=== PATIENT | male | born 1960 | race American Indian/Alaskan Native ===

== ENCOUNTER 2017-09-12 11:10 | Emergency (ER) | payer MEDICAID ==
[~2017-09-12] VITALS: Ht 653.8 cm; Wt 157.4 kg
[~2017-09-12 11:10] MED LIST: ACET250T3 PO; ALBU8.5H4 IH; ARIP10TA9 PO; ASPI81TA35 PO; ATOR10TA70 PO; BECL8.7A3 IH; CARV6.253 PO; CLIN-5 PO; DICY10CA88 PO; DOCU250C4 PO; FURO40TA4 PO; GLIM2TAB2 PO; INSU100I31 SQ; LISI-644 PO; ONDA4TAB9 PO; OSC500T PO; OXYC30TA88 PO; PANT40TA4 PO; PARO40TA4 PO; TEST200V16 IM
[2017-09-12] MEDS ORDERED: normal saline 1000ML IV soln IVB ONE (12:05)
[2017-09-12 12:08] LABS: BASOPHILS % (AUTO) 0.3 % (0-1); EOSINOPHILS # (AUTO) 0.2 X10'3 (0-0.9); EOSINOPHILS % (AUTO) 2.4 % (0-6); HEMATOCRIT 46.3 % (42.0-52.0); HEMOGLOBIN 15.7 g/dl (14.0-17.9); LYMPHOCYTES # (AUTO) 2.9 X10'3 (1.1-4.8); LYMPHOCYTES % (AUTO) 28.9 % (21-51); MEAN CORPUSCULAR HEMOGLOBIN 31.1 PG (27.0-31.0); MEAN CORPUSCULAR HGB CONC 33.9 % (33.0-36.5); MEAN CORPUSCULAR VOLUME 91.9 FL (78-98); MEAN PLATELET VOLUME 10.1 FL (7.4-10.4); MONOCYTES # (AUTO) 0.5 X10'3 (0-0.9); MONOCYTES % (AUTO) 4.7 % (2-12); NEUTROPHILS # (AUTO) 6.5 X10'3 (1.8-7.7); NEUTROPHILS % (AUTO) 63.7 % (42-75); PLATELET COUNT 195 X10'3 (140-440); RED BLOOD COUNT 5.03 X10'6 (4.70-6.10); WHITE BLOOD COUNT 10.2 X10'3 (4.5-11.0)
[2017-09-12 12:25] LABS: ALANINE AMINOTRANSFERASE 67 U/L (12-78); ALBUMIN 3.2 G/DL (3.4-5.0); ALBUMIN/GLOBULIN RATIO 0.9 (1.1-1.5); ALKALINE PHOSPHATASE 107 IU/L (46-116); ANION GAP 7 (8-16); ASPARTATE AMINO TRANSFERASE 46 U/L (10-37); BILIRUBIN,TOTAL 0.5 MG/DL (0.1-1.0); BLOOD UREA NITROGEN 12 MG/DL (7-18); CHLORIDE 107 MMOL/L (99-107); GLUCOSE 252 MG/DL (70-104); POTASSIUM 3.9 MMOL/L (3.5-5.1); SODIUM 141 MMOL/L (135-145); TOTAL CARBON DIOXIDE 27.1 MMOL/L (24-32); TOTAL PROTEIN 6.7 G/DL (6.4-8.2); eGFR 62 ML/MIN
[2017-09-12 12:36] LABS: CLARITY,URINE CLEAR (Clear); COLOR,URINE AMBER (Yellow); GLUCOSE, URINE NEGATIVE (Neg); KETONES,URINE TRACE mg/dl (Neg); LEUKOCYTE ESTERASE ,URINE NEGATIVE (Neg); NITRITES, URINE NEGATIVE (Neg); OCCULT BLOOD,URINE NEGATIVE (Neg); PH,URINE 6.5 (4.8-8.0); PROTEIN,URINE TRACE mg/dl (Neg)
[2017-09-12 12:41] LABS: UA COLLECTION TYPE URINAL
[2017-09-12] MEDS ORDERED: iohexol 300mg/ml 100ml inj. ONE (12:41)
[2017-09-12 12:45] LABS: BACTERIA,URINE FEW /HPF (Neg); COARSE GRANULAR CAST 0-3 /LPF (NEGATIVE); MUCUS STRANDS MANY /LPF (Neg); RBC,URINE 0-2 /HPF (0-2); SQUAMOUS EPITHELIAL CELL,UR FEW /LPF (FEW); WBC,URINE 0-4 /HPF (0-4)
[2017-09-12 12:50] LABS: URINE AMPHETAMINE SCREEN NEGATIVE (Neg); URINE BARBITUATE SCREEN NEGATIVE (Neg); URINE BENZODIAZEPINES SCREEN NEGATIVE (Neg); URINE CANNABINOID SCREEN NEGATIVE (Neg); URINE COCAINE SCREEN NEGATIVE (Neg); URINE METHADONE SCREEN NEGATIVE (Neg); URINE OPIATE SCREEN POSITIVE (Neg)
[2017-09-12 13:18] LABS: URINE PHENCYCLIDINE SCREEN NEGATIVE (Neg)
[2017-09-12 16:02] VITALS: BP 105/72
== END 2017-09-12 16:07 | disposition home or self-care (01) ==
LOC: ER 11:11
DX: M54.9 Dorsalgia, unspecified (principal); R10.31 Right lower quadrant pain; R19.7 Diarrhea, unspecified; I10 Essential (primary) hypertension; J44.9 Chronic obstructive pulmonary disease, unspecified; K21.9 Gastro-esophageal reflux disease without esophagitis; E11.9 Type 2 diabetes mellitus without complications; F12.10 Cannabis abuse, uncomplicated; G89.29 Other chronic pain; Z90.49 Acquired absence of other specified parts of digestive tract; Z98.890 Other specified postprocedural states; Z88.5 Allergy status to narcotic agent; Z88.0 Allergy status to penicillin; Z88.8 Allergy status to other drugs, medicaments and biological substances; Z79.82 Long term (current) use of aspirin; Z79.4 Long term (current) use of insulin; Z79.899 Other long term (current) drug therapy
CPT/HCPCS: 36415; 74176; 80053; 80305; 81001; 85025; 99285; J7030; Q9967

== ENCOUNTER 2017-11-16 14:06 | Emergency (ER) | payer MEDICAID ==
[~2017-11-16] VITALS: Ht 188 cm; Wt 157.0 kg
[~2017-11-16 14:06] MED LIST changes: -DICY10CA88 PO; -ONDA4TAB9 PO
[2017-11-16 16:42] LABS: ALANINE AMINOTRANSFERASE 42 U/L (12-78); ALBUMIN 3.5 G/DL (3.4-5.0); ALBUMIN/GLOBULIN RATIO 0.9 (1.1-1.5); ALKALINE PHOSPHATASE 134 IU/L (46-116); ANION GAP 7 (8-16); ASPARTATE AMINO TRANSFERASE 17 U/L (10-37); BILIRUBIN,TOTAL 0.6 MG/DL (0.1-1.0); BLOOD UREA NITROGEN 16 MG/DL (7-18); BUN/CREATININE RATIO 12.6 (5.4-32.0); CALCIUM 9.7 MG/DL (8.5-10.1); CHLORIDE 103 MMOL/L (99-107); CREATININE 1.27 MG/DL (0.60-1.10); GLUCOSE 151 MG/DL (70-104); POTASSIUM 3.7 MMOL/L (3.5-5.1); SODIUM 138 MMOL/L (135-145); TOTAL CARBON DIOXIDE 27.7 MMOL/L (24-32); TOTAL PROTEIN 7.6 G/DL (6.4-8.2); eGFR 58 ML/MIN
[2017-11-16 16:53] LABS: BASOPHILS # (AUTO) 0.1 X10'3 (0-0.2); BASOPHILS % (AUTO) 0.6 % (0-1); EOSINOPHILS # (AUTO) 0.3 X10'3 (0-0.9); HEMOGLOBIN 15.9 g/dl (14.0-17.9); LYMPHOCYTES # (AUTO) 3.1 X10'3 (1.1-4.8); LYMPHOCYTES % (AUTO) 25.3 % (21-51); MEAN CORPUSCULAR HEMOGLOBIN 31.3 PG (27.0-31.0); MEAN CORPUSCULAR HGB CONC 34.5 % (33.0-36.5); MEAN CORPUSCULAR VOLUME 90.7 FL (78-98); MEAN PLATELET VOLUME 10.3 FL (7.4-10.4); MONOCYTES # (AUTO) 0.6 X10'3 (0-0.9); NEUTROPHILS # (AUTO) 8.3 X10'3 (1.8-7.7); NEUTROPHILS % (AUTO) 67.1 % (42-75); PLATELET COUNT 203 X10'3 (140-440); RED BLOOD COUNT 5.07 X10'6 (4.70-6.10); RED CELL DISTRIBUTION WIDTH 13.3 % (11.5-14.5); WHITE BLOOD COUNT 12.4 X10'3 (4.5-11.0)
[2017-11-16] MEDS ORDERED: CEPH500C2 PO (17:56)
[2017-11-16] MEDS ORDERED: BACDS PO ×2 (17:56→18:01)
[2017-11-16] MEDS ORDERED: sulfamethoxazole/trimethoprim DS (800/160mg) tablet PO ONE (18:00)
[2017-11-16] MEDS ORDERED: clindamycin 150mg capsule PO ONE (18:00)
[2017-11-16] MEDS ORDERED: CLIN300C17 PO (18:01)
[2017-11-16 18:09] VITALS: BP 148/66
== END 2017-11-16 18:12 | disposition home or self-care (01) ==
LOC: ER 14:06
DX: L03.116 Cellulitis of left lower limb (principal); L03.115 Cellulitis of right lower limb; E11.65 Type 2 diabetes mellitus with hyperglycemia; F17.200 Nicotine dependence, unspecified, uncomplicated; I10 Essential (primary) hypertension; J44.9 Chronic obstructive pulmonary disease, unspecified; K21.9 Gastro-esophageal reflux disease without esophagitis; G89.29 Other chronic pain; F12.90 Cannabis use, unspecified, uncomplicated; Z90.49 Acquired absence of other specified parts of digestive tract; Z90.89 Acquired absence of other organs; Z98.890 Other specified postprocedural states; Z88.0 Allergy status to penicillin; Z88.5 Allergy status to narcotic agent; Z88.8 Allergy status to other drugs, medicaments and biological substances; Z79.82 Long term (current) use of aspirin; Z79.4 Long term (current) use of insulin; Z79.899 Other long term (current) drug therapy
CPT/HCPCS: 36415; 80053; 85025; 93005; 99285

== ENCOUNTER 2017-11-29 12:00 | Inpatient (IN) | payer MEDICAID ==
[~2017-11-29] VITALS: Ht 188 cm; Wt 160.3 kg
[~2017-11-29 12:00] MED LIST changes: +CLIN300C17 PO
[2017-11-29] MEDS ORDERED: ondansetron/PF 4mg/2ml inj IV ONE (12:25)
[2017-11-29] MEDS ORDERED: morphine 4 MG/ML inj SYRINge IV ONE (12:25)
[2017-11-29 12:39] LABS: BASOPHILS % (AUTO) 0.4 % (0-1); EOSINOPHILS # (AUTO) 0.3 X10'3 (0-0.9); EOSINOPHILS % (AUTO) 2.4 % (0-6); HEMATOCRIT 43.7 % (42.0-52.0); LYMPHOCYTES # (AUTO) 3.8 X10'3 (1.1-4.8); LYMPHOCYTES % (AUTO) 35.8 % (21-51); MEAN CORPUSCULAR HEMOGLOBIN 31.3 PG (27.0-31.0); MEAN CORPUSCULAR HGB CONC 34.4 % (33.0-36.5); MEAN CORPUSCULAR VOLUME 91.2 FL (78-98); MEAN PLATELET VOLUME 9.6 FL (7.4-10.4); MONOCYTES # (AUTO) 0.5 X10'3 (0-0.9); MONOCYTES % (AUTO) 5.1 % (2-12); NEUTROPHILS % (AUTO) 56.3 % (42-75); PLATELET COUNT 193 X10'3 (140-440); RED CELL DISTRIBUTION WIDTH 13.4 % (11.5-14.5); WHITE BLOOD COUNT 10.7 X10'3 (4.5-11.0)
[2017-11-29 12:56] LABS: ALANINE AMINOTRANSFERASE 43 U/L (12-78); ALBUMIN 3.4 G/DL (3.4-5.0); ALKALINE PHOSPHATASE 121 IU/L (46-116); ANION GAP 9 (8-16); ASPARTATE AMINO TRANSFERASE 18 U/L (10-37); BILIRUBIN,TOTAL 0.4 MG/DL (0.1-1.0); BLOOD UREA NITROGEN 21 MG/DL (7-18); BUN/CREATININE RATIO 19.6 (5.4-32.0); CALCIUM 9.3 MG/DL (8.5-10.1); CHLORIDE 105 MMOL/L (99-107); CREATININE 1.07 MG/DL (0.60-1.10); GLUCOSE 261 MG/DL (70-104); MAGNESIUM 1.6 MG/DL (1.5-2.4); SODIUM 136 MMOL/L (135-145); TOTAL CARBON DIOXIDE 21.9 MMOL/L (24-32); TOTAL PROTEIN 6.9 G/DL (6.4-8.2); eGFR 71 ML/MIN
[2017-11-29] MEDS ORDERED: HYDROcodone/acetaminophen 10/325mg tab PO ONE (13:25)
[2017-11-29] MEDS ORDERED: ALOG6.252 PO (13:42)
[2017-11-29] MEDS ORDERED: LIRA0.6P SQ (13:42)
[2017-11-29] MEDS ORDERED: POTA10TA19 PO (13:42)
[2017-11-29] MEDS ORDERED: SPIR50TA5 PO (13:42)
[2017-11-29] MEDS ORDERED: MELO-100 PO (13:42)
[2017-11-29] MEDS ORDERED: MESSAGE TO PHARMACY PO ONE (14:15)
[2017-11-29] MEDS ORDERED: ondansetron/PF 4mg/2ml inj IV PRN (14:15)
[2017-11-29] MEDS ORDERED: dextrose ORAL solution 15 GM/59 ML bottle PO PRN ×2 (14:15)
[2017-11-29] MEDS ORDERED: potassium Cl 40MEQ/NS 500ml 500 ML IV PRN ×2 (14:15)
[2017-11-29] MEDS ORDERED: mag hydrox/Alum hydrox/simeth 30ml oral suspension PO PRN (14:15)
[2017-11-29] MEDS ORDERED: acetaminophen 325mg tablet PO PRN (14:15)
[2017-11-29] MEDS ORDERED: dextrose 50%-water 50ml dispensing syringe IV PRN ×2 (14:15)
[2017-11-29] MEDS ORDERED: potassium Cl 20 mEq SR tablet PO PRN ×2 (14:15)
[2017-11-29] MEDS ORDERED: glucagon, human recombinant 1mg kit SUBCUT PRN (14:15)
[2017-11-29] MEDS ORDERED: magnesium 4gm in 100ml NS 100 ML IV PRN (14:15)
[2017-11-29] MEDS ORDERED: ipratropium/albuterol 3ml nebule NEB PRN (14:15)
[2017-11-29] MEDS ORDERED: magnesium hydroxide 30ml (MOM) UD suspension PO PRN (14:15)
[2017-11-29] MEDS ORDERED: magnesium 1gm/100ml D5W IVPB 100 ML IV PRN (14:15)
[2017-11-29 14:21] LABS: CLARITY,URINE CLEAR (Clear); COLOR,URINE YELLOW (Yellow); GLUCOSE, URINE 250 mg/dl (Neg); KETONES,URINE NEGATIVE (Neg); LEUKOCYTE ESTERASE ,URINE NEGATIVE (Neg); NITRITES, URINE NEGATIVE (Neg); OCCULT BLOOD,URINE NEGATIVE (Neg); PROTEIN,URINE NEGATIVE (Neg); UROBILINOGEN,URINE 0.2 E.U/dL (0.2-1.0)
[2017-11-29 14:23] LABS: UA COLLECTION TYPE VOIDED
[2017-11-29] MEDS: carvedilol 6.25mg tablet PO SCH (16:00)
[2017-11-29 16:08] LABS: HEMOGLOBIN A1C 9.3 % (4.5-6.2)
[2017-11-29] MEDS: oxyCODONE IR 5mg (immed. release) tablet PO PRN (17:01)
[2017-11-29 17:50] VITALS: BP 138/88
[2017-11-29] MEDS: PARoxetine 20mg tablet PO SCH (20:00)
[2017-11-29] MEDS: doxycycline inj 100 MG in normal saline 100ml IV soln 100 ML IV SCH (20:00)
[2017-11-29] MEDS: furosemide 40mg tablet PO SCH (20:00)
[2017-11-29] MEDS: acetaZOLAMIDE 250mg tablet PO SCH (20:00)
[2017-11-29] MEDS: insulin glargine (Lantus) pen - multi-dose SQ SCH (20:55)
[2017-11-29] MEDS: atorvastatin 10mg tablet PO SCH (21:01)
[2017-11-29 22:00] VITALS: BP 106/64
[2017-11-29] MEDS ORDERED: oxyCODONE IR 5mg (immed. release) tablet PO ONE (23:50)
[2017-11-30 06:00] VITALS: BP 103/72
[2017-11-30 06:33] LABS: BASOPHILS # (AUTO) 0.1 X10'3 (0-0.2); BASOPHILS % (AUTO) 0.8 % (0-1); EOSINOPHILS # (AUTO) 0.3 X10'3 (0-0.9); EOSINOPHILS % (AUTO) 2.6 % (0-6); HEMATOCRIT 43.4 % (42.0-52.0); HEMOGLOBIN 14.9 g/dl (14.0-17.9); LYMPHOCYTES # (AUTO) 3.5 X10'3 (1.1-4.8); LYMPHOCYTES % (AUTO) 33.6 % (21-51); MEAN CORPUSCULAR HEMOGLOBIN 31.2 PG (27.0-31.0); MEAN CORPUSCULAR HGB CONC 34.2 % (33.0-36.5); MEAN CORPUSCULAR VOLUME 91.1 FL (78-98); MEAN PLATELET VOLUME 9.7 FL (7.4-10.4); MONOCYTES # (AUTO) 0.5 X10'3 (0-0.9); MONOCYTES % (AUTO) 4.9 % (2-12); NEUTROPHILS % (AUTO) 58.1 % (42-75); PLATELET COUNT 188 X10'3 (140-440); RED BLOOD COUNT 4.77 X10'6 (4.70-6.10); RED CELL DISTRIBUTION WIDTH 13.6 % (11.5-14.5); WHITE BLOOD COUNT 10.4 X10'3 (4.5-11.0)
[2017-11-30 06:51] LABS: ALANINE AMINOTRANSFERASE 53 U/L (12-78); ALBUMIN 3.3 G/DL (3.4-5.0); ALBUMIN/GLOBULIN RATIO 0.9 (1.1-1.5); ALKALINE PHOSPHATASE 105 IU/L (46-116); ANION GAP 8 (8-16); ASPARTATE AMINO TRANSFERASE 30 U/L (10-37); BILIRUBIN,TOTAL 0.5 MG/DL (0.1-1.0); BLOOD UREA NITROGEN 21 MG/DL (7-18); BUN/CREATININE RATIO 18.6 (5.4-32.0); CALCIUM 9.1 MG/DL (8.5-10.1); CHLORIDE 102 MMOL/L (99-107); CHOL/HDL RATIO 4.4 (0.00-4.99); CHOLESTEROL 128 MG/DL (0-200); CREATININE 1.13 MG/DL (0.60-1.10); GLUCOSE 171 MG/DL (70-104); HDL CHOLESTEROL 29 MG/DL (35-60); LDL CHOLESTEROL 69 MG/DL (50-100); MAGNESIUM 1.6 MG/DL (1.5-2.4); SODIUM 138 MMOL/L (135-145); TOTAL CARBON DIOXIDE 28.1 MMOL/L (24-32); TOTAL PROTEIN 7.1 G/DL (6.4-8.2); TRIGLYCERIDES 259 MG/DL (20-135); eGFR 67 ML/MIN
[2017-11-30] MEDS: aripiprazole 5mg tablet PO SCH (07:44)
[2017-11-30] MEDS: spironolactone 50 MG tablet PO SCH (07:44)
[2017-11-30] MEDS: docusate sod 250mg capsule PO SCH (07:44)
[2017-11-30] MEDS: carvedilol 6.25mg tablet PO SCH ×2 (07:44→15:44)
[2017-11-30] MEDS: aspirin 81mg tablet.DR PO SCH (07:44)
[2017-11-30] MEDS: pantoprazole 40mg Tablet.DR PO SCH (07:44)
[2017-11-30] MEDS: oxyCODONE IR 5mg (immed. release) tablet PO PRN ×2 (07:44→15:40)
[2017-11-30] MEDS: furosemide 40mg tablet PO SCH ×2 (07:44→21:30)
[2017-11-30] MEDS: lisinopril 20mg tablet PO SCH (07:44)
[2017-11-30] MEDS: acetaZOLAMIDE 250mg tablet PO SCH ×2 (07:44→21:30)
[2017-11-30] MEDS: enoxaparin 40mg/0.4ml syringe SQ SCH (07:45)
[2017-11-30] MEDS: doxycycline inj 100 MG in normal saline 100ml IV soln 100 ML IV SCH ×2 (07:53→21:26)
[2017-11-30] MEDS: K and/or MAG REPLACEMENT MC SCH (08:00)
[2017-11-30 10:00] VITALS: BP 116/67
[2017-11-30] MEDS: insulin Lispro (HumaLOG) vial - multi-dose SQ SCH ×2 (13:15→18:51)
[2017-11-30] MEDS: PARoxetine 20mg tablet PO SCH (15:39)
[2017-11-30] MEDS: emollient combination-Eucerin 250 ML LOTION TP SCH (15:39)
[2017-11-30 15:42] VITALS: BP 99/60
[2017-11-30 18:00] VITALS: BP 133/63
[2017-11-30] MEDS: atorvastatin 10mg tablet PO SCH (21:29)
[2017-11-30] MEDS: lactobacillus rhamnosus 10,000 MMU CELLS/CAPSULE PO SCH (21:29)
[2017-11-30] MEDS: insulin glargine (Lantus) pen - multi-dose SQ SCH (21:53)
[2017-11-30 22:00] VITALS: BP 90/40
[2017-12-01 02:07] VITALS: BP 113/66
[2017-12-01 05:35] LABS: BASOPHILS # (AUTO) 0.1 X10'3 (0-0.2); BASOPHILS % (AUTO) 1.2 % (0-1); EOSINOPHILS # (AUTO) 0.2 X10'3 (0-0.9); EOSINOPHILS % (AUTO) 2.2 % (0-6); HEMOGLOBIN 13.9 g/dl (14.0-17.9); LYMPHOCYTES # (AUTO) 2.9 X10'3 (1.1-4.8); LYMPHOCYTES % (AUTO) 28.1 % (21-51); MEAN CORPUSCULAR HEMOGLOBIN 31.2 PG (27.0-31.0); MEAN CORPUSCULAR HGB CONC 33.9 % (33.0-36.5); MEAN CORPUSCULAR VOLUME 91.8 FL (78-98); MEAN PLATELET VOLUME 9.6 FL (7.4-10.4); MONOCYTES # (AUTO) 0.6 X10'3 (0-0.9); MONOCYTES % (AUTO) 5.8 % (2-12); NEUTROPHILS # (AUTO) 6.4 X10'3 (1.8-7.7); NEUTROPHILS % (AUTO) 62.7 % (42-75); PLATELET COUNT 183 X10'3 (140-440); RED BLOOD COUNT 4.47 X10'6 (4.70-6.10); RED CELL DISTRIBUTION WIDTH 13.5 % (11.5-14.5); WHITE BLOOD COUNT 10.2 X10'3 (4.5-11.0)
[2017-12-01 05:52] LABS: ALANINE AMINOTRANSFERASE 48 U/L (12-78); ALBUMIN 3.1 G/DL (3.4-5.0); ALBUMIN/GLOBULIN RATIO 0.9 (1.1-1.5); ALKALINE PHOSPHATASE 104 IU/L (46-116); ANION GAP 6 (8-16); ASPARTATE AMINO TRANSFERASE 27 U/L (10-37); BILIRUBIN,TOTAL 0.4 MG/DL (0.1-1.0); BLOOD UREA NITROGEN 26 MG/DL (7-18); BUN/CREATININE RATIO 26.3 (5.4-32.0); CALCIUM 8.9 MG/DL (8.5-10.1); CHLORIDE 103 MMOL/L (99-107); CREATININE 0.99 MG/DL (0.60-1.10); GLUCOSE 197 MG/DL (70-104); MAGNESIUM 1.6 MG/DL (1.5-2.4); POTASSIUM 3.7 MMOL/L (3.5-5.1); SODIUM 136 MMOL/L (135-145); TOTAL CARBON DIOXIDE 26.6 MMOL/L (24-32); TOTAL PROTEIN 6.5 G/DL (6.4-8.2); eGFR 78 ML/MIN
[2017-12-01 06:00] VITALS: BP 123/72
[2017-12-01] MEDS: K and/or MAG REPLACEMENT MC SCH (07:04)
[2017-12-01] MEDS: docusate sod 250mg capsule PO SCH (07:15)
[2017-12-01] MEDS: enoxaparin 40mg/0.4ml syringe SQ SCH (07:15)
[2017-12-01] MEDS: lactobacillus rhamnosus 10,000 MMU CELLS/CAPSULE PO SCH ×2 (07:15→19:40)
[2017-12-01] MEDS: acetaZOLAMIDE 250mg tablet PO SCH (07:15)
[2017-12-01] MEDS: aripiprazole 5mg tablet PO SCH (07:15)
[2017-12-01] MEDS: pantoprazole 40mg Tablet.DR PO SCH (07:16)
[2017-12-01] MEDS: aspirin 81mg tablet.DR PO SCH (07:16)
[2017-12-01] MEDS: spironolactone 50 MG tablet PO SCH (07:16)
[2017-12-01] MEDS: furosemide 40mg tablet PO SCH ×2 (07:16→19:40)
[2017-12-01] MEDS: oxyCODONE IR 5mg (immed. release) tablet PO PRN ×3 (07:16→23:38)
[2017-12-01] MEDS: lisinopril 20mg tablet PO SCH (07:17)
[2017-12-01] MEDS: carvedilol 6.25mg tablet PO SCH (07:17)
[2017-12-01] MEDS: carVEDilol 3.125mg tablet PO SCH ×2 (08:00→15:40)
[2017-12-01] MEDS: insulin Lispro (HumaLOG) vial - multi-dose SQ SCH ×3 (08:49→19:38)
[2017-12-01] MEDS: doxycycline inj 100 MG in normal saline 100ml IV soln 100 ML IV SCH (08:51)
[2017-12-01 10:00] VITALS: BP 108/75
[2017-12-01 15:40] VITALS: BP 126/84
[2017-12-01] MEDS: PARoxetine 20mg tablet PO SCH (15:44)
[2017-12-01] MEDS: DOXYCYCLINE 100MG CAPSULE PO SCH (16:56)
[2017-12-01 18:00] VITALS: BP 121/64
[2017-12-01] MEDS: atorvastatin 10mg tablet PO SCH (19:40)
[2017-12-01] MEDS: insulin glargine (Lantus) pen - multi-dose SQ SCH (21:00)
[2017-12-01 22:00] VITALS: BP 112/53
[2017-12-02 06:00] VITALS: BP 120/76
[2017-12-02 06:01] LABS: BASOPHILS # (AUTO) 0.1 X10'3 (0-0.2); BASOPHILS % (AUTO) 0.7 % (0-1); EOSINOPHILS # (AUTO) 0.2 X10'3 (0-0.9); EOSINOPHILS % (AUTO) 2.2 % (0-6); HEMATOCRIT 41.4 % (42.0-52.0); HEMOGLOBIN 14.2 g/dl (14.0-17.9); LYMPHOCYTES % (AUTO) 30.8 % (21-51); MEAN CORPUSCULAR HEMOGLOBIN 31.2 PG (27.0-31.0); MEAN CORPUSCULAR HGB CONC 34.3 % (33.0-36.5); MEAN CORPUSCULAR VOLUME 90.9 FL (78-98); MEAN PLATELET VOLUME 9.5 FL (7.4-10.4); MONOCYTES # (AUTO) 0.5 X10'3 (0-0.9); MONOCYTES % (AUTO) 5.3 % (2-12); PLATELET COUNT 195 X10'3 (140-440); RED BLOOD COUNT 4.56 X10'6 (4.70-6.10); RED CELL DISTRIBUTION WIDTH 13.6 % (11.5-14.5); WHITE BLOOD COUNT 9.9 X10'3 (4.5-11.0)
[2017-12-02 06:23] LABS: ALANINE AMINOTRANSFERASE 49 U/L (12-78); ALBUMIN 3.2 G/DL (3.4-5.0); ALBUMIN/GLOBULIN RATIO 0.9 (1.1-1.5); ALKALINE PHOSPHATASE 108 IU/L (46-116); ANION GAP 7 (8-16); ASPARTATE AMINO TRANSFERASE 26 U/L (10-37); BILIRUBIN,TOTAL 0.3 MG/DL (0.1-1.0); BLOOD UREA NITROGEN 26 MG/DL (7-18); CALCIUM 8.7 MG/DL (8.5-10.1); CHLORIDE 103 MMOL/L (99-107); CREATININE 1.13 MG/DL (0.60-1.10); GLUCOSE 232 MG/DL (70-104); MAGNESIUM 1.5 MG/DL (1.5-2.4); POTASSIUM 3.6 MMOL/L (3.5-5.1); SODIUM 135 MMOL/L (135-145); TOTAL CARBON DIOXIDE 24.7 MMOL/L (24-32); TOTAL PROTEIN 6.8 G/DL (6.4-8.2); eGFR 67 ML/MIN
[2017-12-02] MEDS: K and/or MAG REPLACEMENT MC SCH (07:02)
[2017-12-02] MEDS: lisinopril 20mg tablet PO SCH (07:11)
[2017-12-02] MEDS: lactobacillus rhamnosus 10,000 MMU CELLS/CAPSULE PO SCH (07:11)
[2017-12-02] MEDS: docusate sod 250mg capsule PO SCH (07:11)
[2017-12-02] MEDS: DOXYCYCLINE 100MG CAPSULE PO SCH (07:12)
[2017-12-02] MEDS: aripiprazole 5mg tablet PO SCH (07:12)
[2017-12-02] MEDS: carVEDilol 3.125mg tablet PO SCH (07:12)
[2017-12-02] MEDS: furosemide 40mg tablet PO SCH (07:12)
[2017-12-02] MEDS: aspirin 81mg tablet.DR PO SCH (07:12)
[2017-12-02] MEDS: pantoprazole 40mg Tablet.DR PO SCH (07:12)
[2017-12-02] MEDS: oxyCODONE IR 5mg (immed. release) tablet PO PRN (07:12)
[2017-12-02] MEDS: spironolactone 50 MG tablet PO SCH (07:12)
[2017-12-02] MEDS: enoxaparin 40mg/0.4ml syringe SQ SCH (07:13)
[2017-12-02] MEDS: emollient combination-Eucerin 250 ML LOTION TP SCH (07:13)
[2017-12-02] MEDS: insulin Lispro (HumaLOG) vial - multi-dose SQ SCH ×2 (08:03→13:00)
[2017-12-02 09:42] VITALS: BP 126/85
[2017-12-02] MEDS ORDERED: DOXY-224 PO (12:22)
== END 2017-12-02 13:20 | disposition home or self-care (01) | DRG 383 ==
LOC: ER 12:00 → ED HOLD 14:15 → EDBEDREQ 17:16 → ORTHO 4S 17:45
PROVIDERS: ADMIT Family Medicine; ATTEND Family Medicine
DX: L03.115 Cellulitis of right lower limb (principal); E11.42 Type 2 diabetes mellitus with diabetic polyneuropathy; E11.65 Type 2 diabetes mellitus with hyperglycemia; I10 Essential (primary) hypertension; E78.1 Pure hyperglyceridemia; F17.210 Nicotine dependence, cigarettes, uncomplicated; F31.9 Bipolar disorder, unspecified; I87.2 Venous insufficiency (chronic) (peripheral); J44.9 Chronic obstructive pulmonary disease, unspecified; K21.9 Gastro-esophageal reflux disease without esophagitis; G89.29 Other chronic pain; F12.90 Cannabis use, unspecified, uncomplicated; L03.116 Cellulitis of left lower limb; Z79.82 Long term (current) use of aspirin; Z79.84 Long term (current) use of oral hypoglycemic drugs; Z79.899 Other long term (current) drug therapy; Z82.49 Family history of ischemic heart disease and other diseases of the circulatory system; Z87.11 Personal history of peptic ulcer disease; Z90.49 Acquired absence of other specified parts of digestive tract; Z88.0 Allergy status to penicillin; Z88.5 Allergy status to narcotic agent; Z88.8 Allergy status to other drugs, medicaments and biological substances
CPT/HCPCS: 36415; 71045; 80053; 80061; 81003; 82948; 83036; 83605; 83735; 84145; 85025; 87040; 87070; 93005; 94760; 96374; 96375; 99285; J1650; J1815; J2270; J2405; J3490; J7030

== ENCOUNTER 2018-02-05 16:58 | Emergency (ER) | payer MEDICAID ==
[~2018-02-05] VITALS: Ht 188 cm; Wt 159.0 kg
[~2018-02-05 16:58] MED LIST changes: -ACET250T3 PO; +ALOG6.252 PO; -CLIN-5 PO; -CLIN300C17 PO; +DOXY-224 PO; +LIRA0.6P SQ; -OSC500T PO; +POTA10TA19 PO; +SPIR50TA5 PO; -TEST200V16 IM
[2018-02-05 17:08] VITALS: BP 111/70
[2018-02-05] MEDS ORDERED: LIDOcaine 1.5% w/epinephrine 1:200,000 5ml ampul IJ ONE (17:45)
[2018-02-05] MEDS ORDERED: CLIN300C85 PO (18:05)
== END 2018-02-05 18:20 | disposition home or self-care (01) ==
LOC: ER 16:59
DX: L02.214 Cutaneous abscess of groin (principal); E11.9 Type 2 diabetes mellitus without complications; I10 Essential (primary) hypertension; J44.9 Chronic obstructive pulmonary disease, unspecified; K21.9 Gastro-esophageal reflux disease without esophagitis; G89.29 Other chronic pain; F12.90 Cannabis use, unspecified, uncomplicated; E66.9 Obesity, unspecified; Z90.49 Acquired absence of other specified parts of digestive tract; Z90.89 Acquired absence of other organs; Z88.0 Allergy status to penicillin; Z88.6 Allergy status to analgesic agent; Z88.8 Allergy status to other drugs, medicaments and biological substances; Z79.899 Other long term (current) drug therapy; Z79.82 Long term (current) use of aspirin; Z87.11 Personal history of peptic ulcer disease
CPT/HCPCS: 10060; 82948; 99284

== ENCOUNTER 2018-02-09 11:23 | Emergency (ER) | payer MEDICAID ==
[~2018-02-09] VITALS: Ht 188 cm; Wt 345.7 kg
[~2018-02-09 11:23] MED LIST changes: +CLIN300C85 PO
[2018-02-09 11:27] VITALS: BP 117/78
== END 2018-02-09 12:56 | disposition home or self-care (01) ==
LOC: ER 11:24
DX: L02.415 Cutaneous abscess of right lower limb (principal); I10 Essential (primary) hypertension; J44.9 Chronic obstructive pulmonary disease, unspecified; K21.9 Gastro-esophageal reflux disease without esophagitis; E11.9 Type 2 diabetes mellitus without complications; G89.29 Other chronic pain; F12.90 Cannabis use, unspecified, uncomplicated; Z90.49 Acquired absence of other specified parts of digestive tract; Z98.890 Other specified postprocedural states; Z88.0 Allergy status to penicillin; Z88.5 Allergy status to narcotic agent; Z88.8 Allergy status to other drugs, medicaments and biological substances; Z79.899 Other long term (current) drug therapy; Z79.82 Long term (current) use of aspirin; Z79.4 Long term (current) use of insulin
CPT/HCPCS: 99281; A6257; 99282

== ENCOUNTER 2018-12-08 01:39 | Emergency (ER) | payer MEDICAID ==
[~2018-12-08] VITALS: Ht 185.4 cm; Wt 151.4 kg
[~2018-12-08 01:39] MED LIST changes: +CLIN-96 PO; -CLIN300C85 PO; -GLIM2TAB2 PO; +GLIM2TAB3 PO
[2018-12-08 01:41] VITALS: BP 147/58
[2018-12-08] MEDS ORDERED: HYDROcodone/acetaminophen 10/325mg tab PO ONE (01:50)
== END 2018-12-08 02:57 | disposition home or self-care (01) ==
LOC: ER 01:40
DX: S82.191A Other fracture of upper end of right tibia, initial encounter for closed fracture (principal); S82.831A Other fracture of upper and lower end of right fibula, initial encounter for closed fracture; S82.231A Displaced oblique fracture of shaft of right tibia, initial encounter for closed fracture; S82.431A Displaced oblique fracture of shaft of right fibula, initial encounter for closed fracture; S93.491A Sprain of other ligament of right ankle, initial encounter; I10 Essential (primary) hypertension; J44.9 Chronic obstructive pulmonary disease, unspecified; K21.9 Gastro-esophageal reflux disease without esophagitis; E11.9 Type 2 diabetes mellitus without complications; G89.29 Other chronic pain; F31.9 Bipolar disorder, unspecified; F17.200 Nicotine dependence, unspecified, uncomplicated; F12.90 Cannabis use, unspecified, uncomplicated; Z90.49 Acquired absence of other specified parts of digestive tract; Z90.89 Acquired absence of other organs; Z98.890 Other specified postprocedural states; Z88.0 Allergy status to penicillin; Z88.5 Allergy status to narcotic agent; Z88.8 Allergy status to other drugs, medicaments and biological substances; Z79.82 Long term (current) use of aspirin; Z79.4 Long term (current) use of insulin; Z79.899 Other long term (current) drug therapy; W01.0XXA Fall on same level from slipping, tripping and stumbling without subsequent striking against object, initial encounter; Y93.89 Activity, other specified; Y92.89 Other specified places as the place of occurrence of the external cause; Y99.8 Other external cause status
CPT/HCPCS: 73564; 73590; 73610; 99283

== ENCOUNTER 2019-03-22 08:35 | Day surgery (SDC) | payer MEDICAID ==
[~2019-03-22 08:35] MED LIST changes: +CLIN-90 PO; -CLIN-96 PO; -GLIM2TAB3 PO; +GLIM2TAB6 PO
[2019-03-22] MEDS ORDERED: LIDOcaine 2% 5ml jelly ONE ×2 (09:29→10:03)
[2019-03-22] MEDS ORDERED: silver sulfadiazine cream 50gm TP ONE (10:16)
== END 2019-03-22 10:40 | disposition home or self-care (01) ==
LOC: WOUND CARE 08:35
PROVIDERS: ATTEND Surgery
DX: T23.202A Burn of second degree of left hand, unspecified site, initial encounter (principal); T23.222A Burn of second degree of single left finger (nail) except thumb, initial encounter; J44.9 Chronic obstructive pulmonary disease, unspecified; I10 Essential (primary) hypertension; M19.90 Unspecified osteoarthritis, unspecified site; K21.9 Gastro-esophageal reflux disease without esophagitis; G89.29 Other chronic pain; F31.9 Bipolar disorder, unspecified; F12.90 Cannabis use, unspecified, uncomplicated; F17.200 Nicotine dependence, unspecified, uncomplicated; Z79.82 Long term (current) use of aspirin; Z79.4 Long term (current) use of insulin; Z79.899 Other long term (current) drug therapy; Z98.890 Other specified postprocedural states; Z90.49 Acquired absence of other specified parts of digestive tract; X08.8XXA Exposure to other specified smoke, fire and flames, initial encounter; Y93.89 Activity, other specified; Y92.89 Other specified places as the place of occurrence of the external cause; Y99.8 Other external cause status
CPT/HCPCS: 16020; 36416; 82948; A6223; 97597; 97598; A6446

== ENCOUNTER 2019-03-26 09:15 | Day surgery (SDC) | payer MEDICAID ==
[2019-03-26] MEDS ORDERED: LIDOcaine 2% 5ml jelly ONE (09:56)
[2019-03-26] MEDS ORDERED: silver sulfadiazine cream 50gm TP ONE (10:56)
== END 2019-03-26 11:08 | disposition home or self-care (01) ==
LOC: WOUND CARE 09:15
PROVIDERS: ATTEND Surgery
DX: T23.202D Burn of second degree of left hand, unspecified site, subsequent encounter (principal); T23.222D Burn of second degree of single left finger (nail) except thumb, subsequent encounter; J44.9 Chronic obstructive pulmonary disease, unspecified; I10 Essential (primary) hypertension; M19.90 Unspecified osteoarthritis, unspecified site; K21.9 Gastro-esophageal reflux disease without esophagitis; G89.29 Other chronic pain; F31.9 Bipolar disorder, unspecified; F12.90 Cannabis use, unspecified, uncomplicated; F17.200 Nicotine dependence, unspecified, uncomplicated; Z79.82 Long term (current) use of aspirin; Z79.4 Long term (current) use of insulin; Z79.899 Other long term (current) drug therapy; Z98.890 Other specified postprocedural states; Z90.49 Acquired absence of other specified parts of digestive tract; X08.8XXD Exposure to other specified smoke, fire and flames, subsequent encounter
CPT/HCPCS: 16020; A6223; 16025; 97597; A4663; A6446

== ENCOUNTER 2019-04-02 09:13 | Day surgery (SDC) | payer MEDICAID ==
[2019-04-02] MEDS ORDERED: LIDOcaine 2% 5ml jelly ONE (10:02)
== END 2019-04-02 10:42 | disposition home or self-care (01) ==
LOC: WOUND CARE 09:13
PROVIDERS: ATTEND Surgery
DX: T23.202D Burn of second degree of left hand, unspecified site, subsequent encounter (principal); T23.222D Burn of second degree of single left finger (nail) except thumb, subsequent encounter; J44.9 Chronic obstructive pulmonary disease, unspecified; I10 Essential (primary) hypertension; M19.90 Unspecified osteoarthritis, unspecified site; K21.9 Gastro-esophageal reflux disease without esophagitis; G89.29 Other chronic pain; F31.9 Bipolar disorder, unspecified; F12.90 Cannabis use, unspecified, uncomplicated; F17.200 Nicotine dependence, unspecified, uncomplicated; Z79.82 Long term (current) use of aspirin; Z79.4 Long term (current) use of insulin; Z79.899 Other long term (current) drug therapy; Z98.890 Other specified postprocedural states; Z90.49 Acquired absence of other specified parts of digestive tract; X08.8XXD Exposure to other specified smoke, fire and flames, subsequent encounter
CPT/HCPCS: 16020; 97597; A4663; A6021

== ENCOUNTER 2020-03-14 11:19 | Emergency (ER) | payer MEDICAID ==
[~2020-03-14] VITALS: Ht 185.4 cm; Wt 148.2 kg
[~2020-03-14 11:19] MED LIST changes: -CLIN-90 PO; +CLIN-97 PO; +DOCU-340 PO; -DOCU250C4 PO; +OXYC30TA PO; -OXYC30TA88 PO; -PANT40TA4 PO; +PANT40TA54 PO
[2020-03-14 11:33] VITALS: BP 123/83
--- NOTE | 2020-03-14 11:40 | NUR ---
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
== END 2020-03-14 12:57 | disposition home or self-care (01) ==
LOC: ER 11:20
DX: R60.0 Localized edema (principal); I10 Essential (primary) hypertension; J44.9 Chronic obstructive pulmonary disease, unspecified; K21.9 Gastro-esophageal reflux disease without esophagitis; E11.9 Type 2 diabetes mellitus without complications; G89.29 Other chronic pain; F31.9 Bipolar disorder, unspecified; F12.90 Cannabis use, unspecified, uncomplicated; Z87.11 Personal history of peptic ulcer disease; Z90.89 Acquired absence of other organs; Z98.890 Other specified postprocedural states; Z88.0 Allergy status to penicillin; Z88.5 Allergy status to narcotic agent; Z88.8 Allergy status to other drugs, medicaments and biological substances; Z88.1 Allergy status to other antibiotic agents; Z79.82 Long term (current) use of aspirin; Z79.2 Long term (current) use of antibiotics; Z79.4 Long term (current) use of insulin; Z79.899 Other long term (current) drug therapy
CPT/HCPCS: 99284